=== PATIENT | female | born 2000 | race Caucasian/White ===

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

== ENCOUNTER 2018-05-23 10:51 | Emergency (ER) | payer MEDICAID ==
[~2018-05-23] VITALS: Ht 154.9 cm; Wt 88.7 kg
[~2018-05-23 10:51] MED LIST changes: -IBUP-2213 PO; +PANTOPRAZOLE 40 MG
[2018-05-23 10:58] VITALS: BP 128/85
[2018-05-23] MEDS ORDERED: cefTRIAXone 1,000 MG in LIDOCAINE 1% ***ER ONLY *** 2.1 ML IM ONE (11:25)
[2018-05-23] MEDS ORDERED: methylPREDNISolone SS 125 MG in WATER STERILE 2 ML IM ONE (11:25)
[2018-05-23] MEDS ORDERED: ALBUTEROL SULFATE/IPRATROPIU 3 ML SOL IH ONE (11:25)
[2018-05-23 12:07] VITALS: BP 112/68
== END 2018-05-23 12:09 | disposition home or self-care (01) ==
LOC: MED 10:51
DX: J06.9 Acute upper respiratory infection, unspecified (principal)
CPT/HCPCS: 94640; 96372; 99284; J0696; J2001; J2930; J7620

== ENCOUNTER 2018-09-12 11:48 | Emergency (ER) | payer MEDICAID ==
[~2018-09-12] VITALS: Ht 162.6 cm; Wt 93.4 kg
[2018-09-12 11:55] VITALS: BP 148/79
[2018-09-12 12:15] VITALS: BP 128/78
== END 2018-09-12 12:14 | disposition home or self-care (01) ==
LOC: MED 11:48
DX: R05 Cough (principal); J32.9 Chronic sinusitis, unspecified; Z79.899 Other long term (current) drug therapy
CPT/HCPCS: 99283

== ENCOUNTER 2018-12-20 18:00 | Emergency (ER) | payer MEDICAID ==
[~2018-12-20] VITALS: Ht 154.9 cm; Wt 91.2 kg
[2018-12-20 18:18] VITALS: BP 137/76
--- NOTE | 2018-12-20 19:02 | NUR ---
PT AMBULATED TO BED 01.
--- NOTE | 2018-12-20 19:20 | NUR ---
C/O UPPER ABDOMINAL PAIN 6/10, N/V/D/FEVER X3 DAYS. ABDOMEN IS SOFT, FLAT AND TENDER TO PALPATION OF EPIGASTRIC AREA, BOWEL SOUNDS ACTIVE X4, PT IS AFEBRILE AT THIS TIME. SKIN IS PINK/WARM/DRY; AAOX4 WITH EVEN AND STEADY GAIT; LUNGS CLEAR BL; HR EVEN AND REGULAR; VSS; PATIENT POSITIONED FOR COMFORT; HOB ELEVATED; BEDRAILS UP X1; BED DOWN. ER MD MADE AWARE OF PT STATUS.
[2018-12-20] MEDS ORDERED: DICYCLOMINE HCL LIQUID 20 MG, ALUMINUM HYD/MAG/SIMETHICONE 30 ML, LIDOCAINE VISCOUS 2% ... PO ONE ×3 (19:45)
[2018-12-20] MEDS ORDERED: KETOROLAC 30 MG/ML VIAL IM ONE (19:45)
[2018-12-20 20:12] LABS: BASOPHILS # (AUTO) 0.1 K/uL (0.00-0.22); BASOPHILS % (AUTO) 0.7 % (0.0-2.0); EOSINOPHILS % (AUTO) 0.6 % (0.0-4.0); HEMATOCRIT 43.8 % (36-48); HEMOGLOBIN 14.5 g/dL (12.0-16.0); LYMPHOCYTES # (AUTO) 2.1 K/uL (2.5-16.5); LYMPHOCYTES % (AUTO) 28.1 % (20.5-51.1); MEAN CORPUSCULAR HEMOGLOBIN 28 pg (27-31); MEAN CORPUSCULAR HGB CONC 33 g/dL (33-37); MEAN CORPUSCULAR VOLUME 84.8 fL (80-94); MONOCYTES % (AUTO) 13.3 % (1.7-9.3); NEUTROPHILS # (AUTO) 4.2 K/uL (1.8-7.7); NEUTROPHILS % (AUTO) 57.3 % (42.2-75.2); PLATELET COUNT (AUTO) 378 K/uL (140-450); RED BLOOD CELL COUNT(AUTO) 5.16 MIL/uL (4.20-5.40); RED CELL DISTRIBUTION WIDTH 13.7 % (11.6-13.7); WHITE BLOOD COUNT (AUTO) 7.3 K/uL (4.5-11.0)
[2018-12-20 20:21] LABS: ANION GAP 13.6 (8-16); CARBON DIOXIDE 26.3 mmol/L (21-32); CREATININE 0.6 mg/dL (0.6-1.3); POTASSIUM 3.9 mmol/L (3.5-5.1)
[2018-12-20 20:27] LABS: ALBUMIN 3.6 g/dL (3.4-5.0); TOTAL BILIRUBIN 0.3 mg/dL (0.0-1.0)
[2018-12-20 20:57] VITALS: BP 113/68
--- NOTE | 2018-12-20 20:57 | NUR ---
Patient discharged with v/s stable. Written and verbal after care instructions given and explained. Patient alert, oriented and verbalized understanding of instructions. Ambulatory with steady gait. All questions addressed prior to discharge. ID band removed. Patient advised to follow up with PMD. Rx of Mylanta and Bentyl 20mg given. Work excuse provided until 12/22/18. Patient educated on indication of medication including possible reaction and side effects. Opportunity to ask questions provided and answered.
== END 2018-12-20 20:57 | disposition home or self-care (01) ==
LOC: MED 18:00
DX: R19.7 Diarrhea, unspecified (principal)
CPT/HCPCS: 36415; 80053; 81002; 81025; 83690; 85025; 96372; 99283; J1885

== ENCOUNTER 2019-10-18 10:14 | Emergency (ER) | payer MEDICAID ==
[~2019-10-18] VITALS: Ht 154.9 cm; Wt 101.6 kg
[2019-10-18 10:19] VITALS: BP 138/78
--- NOTE | 2019-10-18 10:24 | NUR ---
Patient ambulated to bed 1. RN evaluating patient at bedside.
--- NOTE | 2019-10-18 10:44 | NUR ---
AAO X4 19 YR OLD F BIB SELF C/O DRY NON PRODUCTIVE COUGH STARTED LAST MONTH WORSE THE LAST 10 DAYS, FEVER 104 PER PT LAST NIGHT AND LOWER BACK PAIN X 10 DAYS. PMH- DENIES
[2019-10-18 10:49] VITALS: BP 124/76
--- NOTE | 2019-10-18 10:49 | NUR ---
Patient discharged with v/s stable. Written and verbal after care instructions given and explained. Patient alert, oriented and verbalized understanding of instructions. Ambulatory with steady gait. All questions addressed prior to discharge. ID band removed. Patient advised to follow up with PMD. Rx of Azithromycin given. Patient educated on indication of medication including possible reaction and side effects. Opportunity to ask questions provided and answered.
== END 2019-10-18 10:49 | disposition home or self-care (01) ==
LOC: MED 10:14
DX: J32.9 Chronic sinusitis, unspecified (principal); Z79.899 Other long term (current) drug therapy
CPT/HCPCS: 99283

== ENCOUNTER 2021-03-08 07:12 | Inpatient (IN) | payer MEDICAID, SELFPAY ==
[~2021-03-08] VITALS: Ht 165.1 cm; Wt 107.0 kg
[2021-03-08 07:17] VITALS: BP 150/84
--- NOTE | 2021-03-08 07:20 | NUR ---
PT AMBULATED TO BED 4.
[2021-03-08] MEDS ORDERED: NACL 0.9% 1,000 ML IV ONE ×3 (07:30→09:30)
[2021-03-08] MEDS ORDERED: METOCLOPRAMIDE 10 MG/2 ML INJ VIAL IVP ONE (07:30)
--- NOTE | 2021-03-08 07:40 | NUR ---
RN at bedside for EKG.
--- NOTE | 2021-03-08 07:56 | NUR ---
PT TAKEN TO CT VIA W/C
--- NOTE | 2021-03-08 07:58 | NUR ---
PT RETURNED BEDSIDE FROM CT VIA W/C
--- NOTE | 2021-03-08 08:02 | NUR ---
BLOODWORK WALKED OVER TO LAB
--- NOTE | 2021-03-08 08:18 | NUR ---
20 FEMALE C/O ABDOMINAL PAIN, N/V SINCE LAST NIGHT. STATES SHE HAS BEEN VOMITTING AND UNABLE TO HOLD ANYTHING DOWN SINCE LAST NIGHT. PT STATES "HAS VOMITTED 6-7 TIMES SINCE LAST NIGHT." PMH: IBS, GASTRITIS NKA
--- NOTE | 2021-03-08 08:40 | NUR ---
BLOODWORK WALKED OVER TO LAB
[2021-03-08 08:48] LABS: ALBUMIN 3.6 g/dL (3.4-5.0); ANION GAP 17.1 (8-16); CARBON DIOXIDE 22.2 mmol/L (21-32); CREATININE 0.7 mg/dL (0.6-1.3); POTASSIUM 3.3 mmol/L (3.5-5.1); TOTAL BILIRUBIN 0.4 mg/dL (0.0-1.0)
[2021-03-08 08:53] LABS: BASOPHILS # (AUTO) 0.1 K/uL (0.00-0.22); BASOPHILS % (AUTO) 0.5 % (0.0-2.0); HEMOGLOBIN 13.6 g/dL (12.0-16.0); LYMPHOCYTES # (AUTO) 0.6 K/uL (2.5-16.5); MEAN CORPUSCULAR HEMOGLOBIN 28 pg (27-31); MEAN CORPUSCULAR HGB CONC 33 g/dL (33-37); MEAN CORPUSCULAR VOLUME 84.9 fL (80-94); MONOCYTES % (AUTO) 8.3 % (1.7-9.3); NEUTROPHILS # (AUTO) 10.5 K/uL (1.8-7.7); NEUTROPHILS % (AUTO) 86.2 % (42.2-75.2); PLATELET COUNT (AUTO) 402 K/uL (140-450); RED BLOOD CELL COUNT(AUTO) 4.82 MIL/uL (4.20-5.40); WHITE BLOOD COUNT (AUTO) 12.2 K/uL (4.8-10.8)
--- NOTE | 2021-03-08 08:55 | NUR ---
PT ABMULATED TO RESTROOM. GAIT STEADY
--- NOTE | 2021-03-08 08:58 | NUR ---
PT AMBULATED TO BED. GAIT STEADY
[2021-03-08] MEDS ORDERED: DIPHENOXYLATE /ATROPINE 2.5 MG TAB PO ONE (09:00)
[2021-03-08] MEDS ORDERED: ACETAMINOPHEN 325 MG TAB PO ONE (09:30)
--- NOTE | 2021-03-08 10:40 | NUR ---
PT AMBULATED TO RESTROOM. GAIT STEADY
--- NOTE | 2021-03-08 10:44 | NUR ---
PATIENT AMBULATED TO BED. GAIT STEADY
[2021-03-08 11:06] LABS: FREE T4 (FREE THYROXINE) 1.18 ng/dL (0.76-1.46); THYROID STIMULATING HORMONE 0.84 uIU/mL (0.34-3.74)
[2021-03-08] MEDS ORDERED: ALUMINUM HYD/MAG/SIMETHICONE 30 ML UDC PO ONE (11:10)
[2021-03-08] MEDS ORDERED: ONDANSETRON 4 MG/2 ML VIAL IVP ONE (11:10)
[2021-03-08] MEDS ORDERED: LORazepam 2 MG/ML VIAL IVP ONE (11:10)
[2021-03-08 11:58] LABS: ANION GAP 20.5 (8-16); CARBON DIOXIDE 19.9 mmol/L (21-32); CREATININE 0.5 mg/dL (0.6-1.3); POTASSIUM 3.4 mmol/L (3.5-5.1)
--- NOTE | 2021-03-08 12:00 | NUR ---
Pt resting HOB elevated, VSS will continue to monitor.
[2021-03-08] MEDS ORDERED: metroNIDAZOLE 500 MG/NS PREMIX 100 ML IV ONE (12:10)
[2021-03-08] MEDS ORDERED: cefTRIAXone 2,000 MG in DEXTROSE 5% 100 ML IV ONE (12:10)
[2021-03-08] MEDS ORDERED: cefTRIAXone 2,000 MG VIAL ONE (12:45)
--- NOTE | 2021-03-08 13:24 | NUR ---
Established IV to left fa 20G, good blood return. Pt tolerated procedure well.
[2021-03-08] MEDS ORDERED: BEN10 PO (13:46)
[2021-03-08] MEDS: DEXT 5% / NACL 0.9% 1,000 ML IV SCH ×2 (14:24→23:55)
--- NOTE | 2021-03-08 14:45 | NUR ---
PT ARRIVED FROM ER, RECEIVED REPORT FROM TERMITE RENEWAL INSPECTOR, PT TRANSFERS SELF TO BED, AMBULATES WITH STEADY GAIT, MOTHER AT BEDSIDE, ALERT ORIENTED X4, SPEAKS CLEARLY, RESP EVEN UNLABORED ON RA, SKIN WARM DRY COLOR WNL, PT DENIES PAIN OR DISCOMFORT, DENIES NAUSEA AT THIS TIME, PIV 20G TO R HAND AND LEFT FA, SITES WNL, MRSA SWAB DONE, INITIAL ASSESSMENT DONE, PT ORIENTED TO ROOM AND FLOOR, CALL MANZO WITHIN REACH, SIDE RAILS UPX2, BED LOCKED IN LOW POSITION, PLAN OF CARE REVIEWED, PT DENIES ANY IMMEDIATE NEEDS AT THIS TIME.
--- NOTE | 2021-03-08 14:49 | NUR ---
Patient will be admitted to care of DR. DANIELA OLSON. Admited to M/S. Will go to room 112A. Belongings list completed. Report to [facility].
[2021-03-08] MEDS ORDERED: guaiFENesin DM 200/20 MG-10 ML 10 ML UDC PO PRN (14:55)
[2021-03-08] MEDS ORDERED: ZOLPIDEM 5 MG TAB PO PRN (14:55)
[2021-03-08] MEDS ORDERED: ONDANSETRON 4 MG/2 ML VIAL IM/IVP PRN (14:55)
[2021-03-08] MEDS ORDERED: POTASSIUM CHLORIDE 10 MEQ TABER PO PRN (14:55)
[2021-03-08] MEDS ORDERED: ACETAMINOPHEN 325 MG TAB PO PRN (14:55)
[2021-03-08] MEDS ORDERED: DOCUSATE SODIUM 100 MG GELCAP PO PRN (14:55)
[2021-03-08 16:00] VITALS: BP 134/65
[2021-03-08 16:13] LABS: CHOL/HDL RATIO 3.6 (1-4.5); FREE T4 (FREE THYROXINE) 1.03 ng/dL (0.76-1.46); MAGNESIUM 1.9 mg/dL (1.8-2.4)
--- NOTE | 2021-03-08 16:25 | NUR ---
PT INFORMED OF THE NEED FOR STOOL AND URINE SAMPLE, COLLECTION CUPS PLACED IN TOILET, PT WILL LET US KNOW WHEN COLLECTED.
--- NOTE | 2021-03-08 17:11 | NUR ---
STOOL AND URINE SAMPLE COLLECTED AND SENT TO LAB
--- NOTE | 2021-03-08 18:07 | NUR ---
PT SLEEPING IN NO ACUTE DISTRESS
[2021-03-08 18:28] LABS: APPEARANCE,URINE CLEAR (CLEAR); BILIRUBIN,URINE NEGATIVE (NEGATIVE); BLOOD, URINE NEGATIVE (NEGATIVE); COLOR,URINE YELLOW (YELLOW); LEUKOCYTE ESTERASE ,URINE NEGATIVE (NEGATIVE); NITRITE, URINE NEGATIVE (NEGATIVE); UGLUCOSE NEGATIVE (NEGATIVE)
[2021-03-08 19:14] LABS: BARBITURATE, URINE NEGATIVE ng/ml (NEG <=200); BENZODIAZEPINE, URINE POSITIVE ng/mL (NEG <=200); CANNABINOID, URINE NEGATIVE ng/mL (NEG <=50); COCAINE, URINE NEGATIVE ng/mL (NEG <=300); OPIATE, URINE NEGATIVE ng/mL (NEG <=2000); PHENCYCLIDINE SCREEN,URINE NEGATIVE ng/mL (NEG <=25)
--- NOTE | 2021-03-08 19:28 | NUR ---
RECEIVED REPORT FROM AM NURSE. PATIENT AWAKE IN BED RESTING. IVF OF D5NS AT 100 ML/HR ON THE RIGHT HAND INFUSING WELL. NO SOB NOTED. DENIES PAIN. STILL WITH EPISODES OF WATERY STOOL. WILL CONTINUE TO MONITOR.
[2021-03-08 20:00] VITALS: BP 133/84
[2021-03-08] MEDS: LOPERAMIDE 2 MG CAP PO PRN ×2 (20:16→23:59)
--- NOTE | 2021-03-08 20:16 | NUR ---
PATIENT WITH EPISODE OF DIARRHEA, IMMODIUM GIVEN ORDERED. NO SOB NOTED. CALL LIGHT WITHIN REACH.
--- NOTE | 2021-03-09 02:49 | NUR ---
CHECKED PATIENT, ASLEEP.
[2021-03-09 04:00] VITALS: BP 117/73
[2021-03-09] MEDS: HYDROcodone/APAP 7.5/325 MG 1 TAB PO PRN ×2 (05:16→17:55)
--- NOTE | 2021-03-09 05:16 | NUR ---
COMPLAINED OF MODERATE PAIN TO BILATERAL SHOULDER. NORCO PRN GIVEN.
[2021-03-09] MEDS: LOPERAMIDE 2 MG CAP PO PRN ×3 (05:17→21:32)
[2021-03-09 06:11] LABS: BASOPHILS % (AUTO) 0.3 % (0.0-2.0); EOSINOPHILS % (AUTO) 0.1 % (0.0-4.0); HEMATOCRIT 38.9 % (36-48); LYMPHOCYTES # (AUTO) 1.4 K/uL (2.5-16.5); LYMPHOCYTES % (AUTO) 17.3 % (20.5-51.1); MEAN CORPUSCULAR HEMOGLOBIN 29 pg (27-31); MEAN CORPUSCULAR HGB CONC 34 g/dL (33-37); MEAN CORPUSCULAR VOLUME 85.4 fL (80-94); MONOCYTES # (AUTO) 1.3 K/uL (0.8-1.0); MONOCYTES % (AUTO) 15.7 % (1.7-9.3); NEUTROPHILS # (AUTO) 5.5 K/uL (1.8-7.7); NEUTROPHILS % (AUTO) 66.6 % (42.2-75.2); PLATELET COUNT (AUTO) 399 K/uL (140-450); RED BLOOD CELL COUNT(AUTO) 4.56 MIL/uL (4.20-5.40); RED CELL DISTRIBUTION WIDTH 14.1 % (11.6-13.7); WHITE BLOOD COUNT (AUTO) 8.2 K/uL (4.8-10.8)
[2021-03-09 06:14] LABS: ANION GAP 13.8 (8-16); CARBON DIOXIDE 21.2 mmol/L (21-32); CREATININE 0.6 mg/dL (0.6-1.3)
--- NOTE | 2021-03-09 07:16 | NUR ---
ENDORSED TO AM NURSE FOR CONTINUITY OF CARE. PATIENT STABLE.
--- NOTE | 2021-03-09 07:20 | NUR ---
REPORT RECEIVED FROM UTILITY SALES REPRESENTATIVE NURSE, PT SLEEPING QUIETLY IN BED, AROUSES EASILY, OX4, RESP EVEN UNLABORED ON RA, SKIN WARM DRY COLOR WNL, CAP REFILL < 3SEC, , DENIES PAIN OR DISCOMFORT, IV TO L FA, IVF INFUSING, SITE WNL, , MOTHER AT BEDSIDE, ALL SAFETY MEASURES IN PLACE, PLAN OF CARE DISCUSSED, DENIES NEEDS AT THIS TIME.
[2021-03-09 08:00] VITALS: BP 135/75
[2021-03-09] MEDS ORDERED: KCL 20 MEQ/WATER INJ PREMIX 200 ML IV SCH (09:00)
--- NOTE | 2021-03-09 09:30 | NUR ---
PT C/O NAUSEA, PAIN MED GIVEN Addendum: 03/09/21 at 1006 by Courtney Pisano RN ANTIEMETIC GIVEN, NOT PAIN MED.
[2021-03-09] MEDS: PANTOPRAZOLE 40 MG TABEC PO SCH (09:48)
--- NOTE | 2021-03-09 10:02 | NUR ---
PATIENT HAS BEEN SCREENED AND CATEGORIZED MODERATE NUTRITION RISK. PATIENT WILL BE SEEN WITHIN 3-5 DAYS OF ADMISSION. 03/10/21 03/12/[address]
--- NOTE | 2021-03-09 10:20 | NUR ---
PT UP TO BATHROOM WITH STEADYG AIT, STATES NAUSEA HAS RESOLVED
[2021-03-09] MEDS: DEXT 5% / NACL 0.9% 1,000 ML IV SCH ×3 (11:56→21:01)
--- NOTE | 2021-03-09 12:09 | NUR ---
SCHEDULED ROCEPHINE STARTED IVPB, PT SITTING UP IN BED TALKING WITHOUT PROBLEM, DENIES NAUSEA, PAIN. REPORTS DIARRHEA, IMMODIUM GIVEN REQUESRTE
[2021-03-09] MEDS: metroNIDAZOLE 500 MG/NS PREMIX 100 ML IV SCH ×2 (13:00→20:52)
--- NOTE | 2021-03-09 13:14 | NUR ---
PT C/O OSUNA, TYENOL GIVEN
--- NOTE | 2021-03-09 14:02 | NUR ---
SCHEDULED FLAGYL STARTED IVPB, IV SITE WNL, PT STATES OSUNA RESOLVED AFTER TYLENOL
--- NOTE | 2021-03-09 15:42 | NUR ---
RECEIVED HANDOFF FROM LEOBARDO ULLOA. PT IS ALERT AND ORIENTED X 4. PT IS ON ROOM AIR WITH RESPIRATIONS EVEN AND UNLABORED. PT IS SR/ST ON THE MONITOR. FOR ACCESS PT HAS R H 20 G AND LFA 20 G, WITH D5NS RUNNING AT 180 ML/HR. PT IS ON CLEAR LIQUID DIET, AND IS TOLERATING WELL. PT IS SITTING WITH HOB AT 30 DEG, SAFETY MEASURES IN PLACE. PT IS ABLE TO AMBULATE TO RESTROOM WITH STEADY GAIT.
[2021-03-09 16:00] VITALS: BP 117/67
--- NOTE | 2021-03-09 17:55 | NUR ---
ADMINISTERED PRN NORCO FOR PT C/O HEADACHE. WILL REASSESS
--- NOTE | 2021-03-09 19:25 | NUR ---
HANDOFF GIVEN TO REGRIND MILL OPERATOR RN FOR CONTINUITY OF CARE
--- NOTE | 2021-03-09 19:25 | NUR ---
REPORT GIVEN FROM AM SHIFT NURSE. PATIENT AWAKE, ALERT IN BED RESTING. NO SOB NOTED. DENIES PAIN. BREATHING REGULAR UNLABORED. IVF D5NS INFUSING AT 180 ML/H ON THE RIGHT HAND. CALL LIGHT WITHIN REACH.
--- NOTE | 2021-03-09 20:52 | NUR ---
MEDICATIONS ADMINISTERED SCHEDULED.
[2021-03-10] VITALS: BP 134/85
[2021-03-10] MEDS: DEXT 5% / NACL 0.9% 1,000 ML IV SCH ×3 (03:24→14:32)
[2021-03-10] MEDS: metroNIDAZOLE 500 MG/NS PREMIX 100 ML IV SCH ×2 (04:52→13:21)
--- NOTE | 2021-03-10 06:44 | NUR ---
PATIENT WITH X3 EPISODES OF WATERY DIARRHEA
[2021-03-10 06:58] LABS: BASOPHILS % (AUTO) 0.6 % (0.0-2.0); EOSINOPHILS % (AUTO) 0.7 % (0.0-4.0); HEMATOCRIT 38.2 % (36-48); HEMOGLOBIN 12.8 g/dL (12.0-16.0); LYMPHOCYTES # (AUTO) 1.6 K/uL (2.5-16.5); LYMPHOCYTES % (AUTO) 27.5 % (20.5-51.1); MEAN CORPUSCULAR HEMOGLOBIN 29 pg (27-31); MEAN CORPUSCULAR HGB CONC 34 g/dL (33-37); MEAN CORPUSCULAR VOLUME 85.2 fL (80-94); MONOCYTES # (AUTO) 1.2 K/uL (0.8-1.0); MONOCYTES % (AUTO) 21.4 % (1.7-9.3); NEUTROPHILS # (AUTO) 2.9 K/uL (1.8-7.7); NEUTROPHILS % (AUTO) 49.8 % (42.2-75.2); PLATELET COUNT (AUTO) 371 K/uL (140-450); RED BLOOD CELL COUNT(AUTO) 4.48 MIL/uL (4.20-5.40); WHITE BLOOD COUNT (AUTO) 5.8 K/uL (4.8-10.8)
[2021-03-10 07:13] LABS: CARBON DIOXIDE 24.2 mmol/L (21-32); CREATININE 0.5 mg/dL (0.6-1.3); POTASSIUM 3.2 mmol/L (3.5-5.1)
--- NOTE | 2021-03-10 07:30 | NUR ---
RECEIVED BEDSIDE REPORT FROM NEON GLASS BLOWER NURSE. PATIENT SLEEPING IN BED, AWAKENS TO NAME, ABLE TO MAKE NEEDS KNOWN. BREATHING EVEN AND UNLABORED, NO SIGNS OF ACUTE DISTRESS NOTED. RH 20G, L FA 20G, INFUSING D5NS @ 180 ML/HR. ELECTRICAL TIMING DEVICE CALIBRATOR IN PLACE. SAFETY MEASURES IN PLACE.
--- NOTE | 2021-03-10 07:30 | NUR ---
ENDORSED TO AM SHIFT NURSE FOR CONTINUITY OF CARE. PATIENT IN STABLE CONDITION.
--- NOTE | 2021-03-10 07:39 | NUR ---
ENDORSED TO AM SHIFT NURSE FOR CONTINUITY OF CARE. PATIENT IN STABLE CONDITION.
[2021-03-10 08:00] VITALS: BP 123/49
[2021-03-10] MEDS: PANTOPRAZOLE 40 MG TABEC PO SCH (08:36)
--- NOTE | 2021-03-10 08:37 | NUR ---
ADMINISTERED SCHEDULED MED PER MD ORDER. MED EDUCATION PROVIDED, PATIENT VERBALIZES UNDERSTANDING. PATIENT SITTING ON SIDE OF BED, EATING BREAKFAST AT THIS TIME. TOLERATED MEDICATION WELL WITH SIPS OF WATER.
[2021-03-10] MEDS ORDERED: KCL 20 MEQ/WATER INJ PREMIX 200 ML IV SCH (09:30)
--- NOTE | 2021-03-10 10:44 | NUR ---
ADMINISTERED 40 MEQ KCL FOR POTASSIUM LAB 3.2. MED EDUCATION PROVIDED, PATIENT VERBALIZES UNDERSTANDING.
[2021-03-10] MEDS: LOPERAMIDE 2 MG CAP PO PRN (11:16)
[2021-03-10] MEDS ORDERED: OMEP40EC24 PO (11:46)
[2021-03-10 16:00] VITALS: BP 109/73
--- NOTE | 2021-03-10 16:35 | NUR ---
PATIENT DISCHARGED AT THIS TIME. DISCHARGED INSTRUCTIONS ALONG WITH PHARMACY, AND SIGNS AND SYMPTOMS TO MONITOR DISCUSSED WITH PATIENT. PATIENT VERBALIZES UNDERSTANDING. BREATHING EVEN AND UNLABORED, NO SIGNS OF ACUTE DISTRESS NOTED. ALERT, ABLE TO MAKE NEEDS KNOWN. IV REMOVED, CANNULA INTACT. PATIENT WHEELED OUT TO PRIVATE VEHICLE FOR DISCHARGE BACK HOME.
== END 2021-03-10 16:35 | disposition home or self-care (01) | DRG 720 ==
LOC: MED 07:12 → MTU 14:07
PROVIDERS: ADMIT Family Medicine; ATTEND Family Medicine
DX: A41.9 Sepsis, unspecified organism (principal); G93.41 Metabolic encephalopathy; E87.2 Acidosis; E87.6 Hypokalemia; E86.0 Dehydration; Z20.822 Contact with and (suspected) exposure to COVID-19; A05.9 Bacterial foodborne intoxication, unspecified; A08.4 Viral intestinal infection, unspecified
CPT/HCPCS: 36415; 71045; 80048; 80053; 80305; 81003; 82009; 82150; 83036; 83605; 83690; 83735; 83880; 84100; 84439; 84443; 84479; 84484; 85025; 87070; 87081; 93005; 96361; 96365; 96375; 99291; G0480; J0696; J2060; J2405; J2765; J3480; J3490; J7060